=== PATIENT | female | born 1955 | race Caucasian/White ===

== ENCOUNTER 2021-05-16 19:05 | Emergency (ER) | payer BC, SELFPAY ==
[2021-05-16] VITALS (7 sets, daily range): BP systolic 171–199; BP diastolic 77–95; PULSE 87–122; RESP 17–31; TEMP 37.2; O2SAT 96–98; BMI 29.8
--- NOTE | 2021-05-16 19:21 | DI.RAD.S_ITS ---
PROCEDURE: XR CHEST 2V INDICATIONS: SOB TECHNIQUE: 2 views of the chest were acquired. COMPARISON: None. FINDINGS: Surgical changes and devices: None. Lungs and pleura: No consolidation. Prominent pulmonary vasculature markings. No pleural effusions or pneumothorax. Mediastinum: Mediastinal contours are normal. Heart size is within normal limits. Bones and chest wall: No suspicious bony abnormalities. Soft tissues appear unremarkable. IMPRESSION: Prominent pulmonary vasculature markings. This could be due to pulmonary vasculature engorgement. No overt fluid overload/CHF. Dictated by: Francis Guan M.D. on 05/16/2021 at 19:50 Approved by: Francis Guan M.D. on 05/16/2021 at 19:51
[2021-05-16 19:27] LABS: Add Manual Diff / Slide Review NO; Basophils Absolute Auto 0 /uL (0-100); Basophils Percent Auto 0.6 % (0-2); Eosinophils Absolute Auto 300 /uL (0-450); Eosinophils Percent Auto 4.6 % (2-4); Hematocrit 41.5 % (36-46); Hemoglobin 13.9 g/dL (12.0-16.0); Lymphocytes Absolute Auto 1800 /uL (1100-4500); Lymphocytes Percent Auto 27.9 % (25-40); Mean Corpuscular HGB Conc 33.5 % (30-36); Mean Corpuscular Hemoglobin 32.8 PG (26-34); Mean Corpuscular Volume 97.8 fL (80-100); Monocytes Absolute Auto 600 /uL (0-900); Neutrophils Absolute Auto 3600 /uL (1500-7000); Neutrophils Percent Auto 56.9 % (50-75); Platelet Count 215 X10^3/uL (150-400); Red Blood Cell Count 4.24 X10^6/uL (4.0-5.2); Red Cell Distribution Width 13.5 % (11.6-14.8); White Blood Cell Count 6.3 X10^3/uL (4.5-11.0)
[2021-05-16 19:38] LABS: Alanine Aminotransferase 16 IU/L (<35); Albumin 4.4 g/dL (3.5-5.0); Albumin Globulin Ratio 1.3 (1.0-2.8); Alkaline Phosphatase 93 U/L (38-126); Aspartate Aminotransferase 34 IU/L (14-36); BUN Creatinine Ratio 20.4 (6-22); Bilirubin Total 0.4 mg/dL (0.2-1.3); Blood Urea Nitrogen 10 mg/dL (7-17); Calcium 9.6 mg/dL (8.4-10.2); Carbon Dioxide 27 mmol/L (22-32); Chloride 106 mmol/L (98-107); Creatine Kinase 91 U/L (30-135); Estimated Glomerular Filt Rate > 60.0 mL/min (>60); Globulin 3.3 g/dL (1.7-4.1); Glucose 138 mg/dL (80-110); HEMOLYSIS < 15 (0-50); Lipase 135 U/L (23-300); Magnesium 2.1 mg/dL (1.6-2.3); Sodium 138 mmol/L (137-145); Total Protein 7.7 g/dL (6.3-8.2)
[2021-05-16 19:50] LABS: NT-proBNP (BNP-Adult 18+) 36 pg/mL (<125); Troponin I < 0.012 ng/mL (0.01-0.034)
[2021-05-16] MEDS: LIDOCAINE PATCH 1 EACH ADH..PATCH TOP (20:31)
[2021-05-16] MEDS: SODIUM CHLORIDE 0.9% 1,000 ML 125 ML IV (20:31)
[2021-05-16] MEDS: CYCLOBENZAPRINE 10 MG PREPACK 1 BOTTLE MISC (21:25)
--- NOTE | 2021-05-16 21:35 | ED.BACK ---
HPI - Back Pain/Injury General Chief Complaint: Back Pain/Injury Stated Complaint: Right shoulder blade pain x1 day Time Seen by Provider: 05/16/21 19:09 Source: patient History of Present Illness HPI Narrative: 65-year-old female former smoker without significant chronic medical problems presents with her a chief complaint of 2-3 days of worsening right posterior shoulder pain. She denies any obvious injury or overuse. She states that it is worse with change of position and use of her right arm, it seems to be better when she arches back, and particularly when she reaches behind her with her right arm. She denies dizziness, weakness or lightheadedness. She denies any chest pain, shortness of breath or cough. She denies any abdominal pain, nausea or vomiting. She has had no fever or chills. She denies any recent travel, injury or history of blood clots. She denies any neck pain or injury. She denies numbness, tingling or weakness in her extremities Related Data Previous Rx's Medication Instructions Recorded cyclobenzaprine 10 mg tablet 10 mg PO TID PRN #14 tab 05/16/21 Allergies Allergy/AdvReac Type Severity Reaction Status Date / Time NO KNOWN ALLERGIES - NKA Allergy Unknown Uncoded 08/04/17 12:27 Review of Systems Review of Systems Narrative: GENERAL: Denies chills, fatigue, malaise, fever, sweats. HEENT: Denies sinus pain, ear pain, sore throat, difficulty swallowing, dizziness. RESPIRATORY: Denies dyspnea, cough, wheezing, hemoptysis, sputum. CARDIOVASCULAR: Denies chest pain, palpitations, orthopnea, edema, GASTROINTESTINAL: Denies nausea, vomiting, abdominal pain, diarrhea, constipation, melena. : Denies dysuria, frequency, incontinence, hematuria, urinary retention. MUSCULOSKELETAL: See HPI SKIN: Denies rash, skin lesions, or other NEUROLOGIC: Denies weakness, headache, numbness, change in speech, confusion, seizures, incoordination. PSYCHIATRIC: No concerning psychosocial issues. 12 point review of systems is negative except for those stated above Patient History Social History Smoking Status: Former smoker Smoking Status: Former smoker alcohol intake frequency: 3 or more drinks per day Substance Use Type: does not use Exam Narrative Exam Narrative: GENERAL: [65 year old patient appears stated age. Well-developed patient, in mild distress. HEAD: Atraumatic. Normocephalic. EYES: Pupils equal round and reactive. Extraocular motions intact. No scleral icterus. No injection or drainage. ENT: Nose without bleeding, purulent drainage. Throat without erythema, tonsillar hypertrophy or exudate. Airway patent. NECK: Trachea midline. Non tender CARDIOVASCULAR: Regular rate and rhythm without murmurs, gallops, or rubs. RESPIRATORY: Clear to auscultation. Breath sounds equal bilaterally. No wheezes, rales, or rhonchi. GASTROINTESTINAL: Abdomen soft, non-tender, nondistended. EXTREMITIES: No edema or joint tenderness. BACK: Patient is tender to palpation of the paraspinal musculature to the right of her upper thoracic spine and medial of her scapula. This is reproducible and worse with recruitment of the musculature and improves when she pulls her elbow back. There is no erythema, warmth, induration, fluctuance. NEURO: AOx3. SKIN: No rash or erythema of visible areas Initial Vital Signs Initial Vital Signs: Vital Signs Pulse Rate 106 H 05/16/21 19:16 Pulse Oximetry 97 05/16/21 19:16 Course Orders Ordered: ED Orders 05/16/21 19:20 Complete Blood Count AUTO DIFF Stat Comprehensive Metabolic Panel Stat Lipase Stat Magnesium Stat NT-proBNP (BNP-Adult 18+) Stat Troponin & CK Cardiac Panel Stat 05/16/21 19:21 XR chest 2V Stat EKG-12 Lead Stat Sodium Chloride (Normal Saline 0.9%) 1,000 mls @ 125 mls/hr IV CONT ALCIRA Last Admin: 05/16/21 20:31 Dose: 125 mls/hr Documented by: BUBBA Discontinued Medications Cyclobenzaprine HCl (Cyclobenzaprine 10 Mg Prepack) [facility] Stop: 05/16/21 21:05 Last Admin: 05/16/21 21:25 Dose: 1 bottle Documented by: BUBBA Lidocaine (Lidocaine Patch 1 Each Adh..Patch) 1 each TOP NOW ONE Stop: 05/16/21 19:57 Last Admin: 05/16/21 20:31 Dose: 1 each Documented by: BUBBA Reevaluation(s) Reevaluation #1: Patient states she feels a 50% reduction in her pain with the use of lidocaine patch Vital Signs Vital signs: Vital Signs - 8 hr 05/16/21 19:16 05/16/21 19:23 05/16/21 19:30 Temperature 98.9 F Pulse Rate 106 H 122 H 99 H Respiratory Rate 18 22 Blood Pressure 199/93 H Pulse Oximetry 97 96 98 05/16/21 19:42 05/16/21 20:00 05/16/21 20:32 Temperature Pulse Rate 96 H 87 94 H Respiratory Rate 17 20 31 H Blood Pressure 185/80 H 171/77 H Pulse Oximetry 98 97 97 MDM - Back Pain/Injury Lab Data Result diagrams: 05/16/21 19:20 05/16/21 19:20 Labs: Lab Results 05/16/21 05/16/21 Range/Units 19:20 19:20 WBC 6.3 (4.5-11.0) X10^3/uL RBC 4.24 (4.0-5.2) X10^6/uL Hgb 13.9 (12.0-16.0) g/dL Hct 41.5 (36-46) % MCV 97.8 (80-100) fL MCH 32.8 (26-34) PG MCHC 33.5 (30-36) % RDW 13.5 (11.6-14.8) % Plt Count 215 (150-400) X10^3/uL Neut % (Auto) 56.9 (50-75) % Lymph % (Auto) 27.9 (25-40) % [place] % (Auto) 10.0 (3-14) % Eos % (Auto) 4.6 H (2-4) % Baso % (Auto) 0.6 (0-2) % Neut # (Auto) 3600 (1377-4807) /uL Lymph # (Auto) 1800 (1098-7436) /uL [place] # (Auto) 600 (0-900) /uL Eos # (Auto) 300 (0-450) /uL Baso # (Auto) 0 (0-100) /uL Sodium 138 (137-145) mmol/L Potassium 4.0 (3.4-5.1) mmol/L Chloride 106 (98-107) mmol/L Carbon Dioxide 27 (22-32) mmol/L BUN 10 (7-17) mg/dL Creatinine 0.49 L (0.52-1.04) mg/dL Estimated GFR > 60.0 (>60) mL/min BUN/Creatinine Ratio 20.4 (6-22) Glucose 138 H (80-110) mg/dL Calcium 9.6 (8.4-10.2) mg/dL Magnesium 2.1 (1.6-2.3) mg/dL Total Bilirubin 0.4 (0.2-1.3) mg/dL AST 34 (14-36) IU/L ALT 16 (<35) IU/L Alkaline Phosphatase 93 (38-126) U/L Total Creatine Kinase 91 (30-135) U/L CK-MB (CK-2) TNP CK-MB (CK-2) Rel Index TNP Troponin I < 0.012 (0.01-0.034) ng/mL NT-Pro-B Natriuret Pep 36 (<125) pg/mL Total Protein 7.7 (6.3-8.2) g/dL Albumin 4.4 (3.5-5.0) g/dL Globulin 3.3 (1.7-4.1) g/dL Albumin/Globulin Ratio 1.3 (1.0-2.8) Lipase 135 (23-300) U/L Imaging Data Chest x-ray: Radiologist's Impression: Prominent pulmonary vasculature, this could be due to CHF, no overt fluid overload. ECG Data Interpretation: EKG is normal sinus rhythm rate [99 ] and free of any signs of ischemia or ectopy. No ST segmental elevation or depression. No T wave inversions MDM Narrative Medical decision making narrative: Multiple etiologies for patient's symptoms considered including: [Musculoskeletal thought most likely given reproducibility to motion and palpation and improvement with topical medication. Cardiac disease considered but thought less likely given lack of exertional component, no radiation of pain, nausea, vomiting, shortness of breath, as well as normal troponin and nonischemic EKG. Referred pain from abdominal illness considered but thought less likely given reassuring labs and no pain with palpation or eating. Patient's symptoms improved over duration of stay with above-stated therapies. Findings and discharge diagnosis discussed with patient/family followed by verbalization of understanding Return precautions discussed with patient/family whom verbalize understanding. Discharge Plan Departure Patient Disposition: Home Clinical Impression: Acute thoracic myofascial strain Instructions: DI for Muscle Strain Activity Restrictions/Additional Instructions: *You have been diagnosed with [right upper back pain most likely due to muscle spasm and inflammation. Your history, physical exam, labs and EKG are very reassuring and there is no evidence of cardiac disease or other serious cause of your pain *What to do: *Please continue to take your regular medications as directed. [ x] New medication prescriptions sent to your pharmacy: [ [facility] [place]] [ ] New medication written as a paper prescription [ ] No new medications given *Please follow up with your primary care provider in 2-3 days, call for an appointment. Let them know you were seen in the Emergency Department and that we ask that you be seen in follow up. We will electronically transmit a record of today's note if your PCP is in our system *If you do not have a primary care provider please contact the [facility] Resource line at [phone]. They will ask some questions about your medical history and help get you set up with a doctor in the community. *Return to Emergency Department if you should have any new, worsening or concerning symptoms, such as [fever greater than 101 F, shaking chills, worsening pain, persistent vomiting or other bothersome symptoms] Prescriptions: New cyclobenzaprine 10 mg tablet 10 mg PO TID PRN (Reason: muscle spasm) Qty: 14 0RF
== END 2021-05-16 21:35 | disposition home or self-care (01) ==
PROVIDERS: Emergency Provider Emergency Medicine
DX: S29.012A Strain of muscle and tendon of back wall of thorax, initial encounter (principal); Z87.891 Personal history of nicotine dependence; X58.XXXA Exposure to other specified factors, initial encounter
CPT/HCPCS: 36415; 71046; 80053; 82550; 83690; 83735; 83880; 84484; 85025; 93005; 93010; 99284

== ENCOUNTER → 2021-12-11 13:23 | Outpatient (CLI) | payer MEDICARE, OTHER, SELFPAY ==
--- NOTE | 2021-12-11 | DI.RAD.S_ITS ---
PROCEDURE: XR CERVICAL SPINE 2V OR 3V INDICATIONS: Other chronic pain TECHNIQUE: 3 view(s) of the cervical spine were acquired. COMPARISON: None. FINDINGS: Bones: No fractures or dislocations to the T1 level. The lateral masses of C1 appear intact on the odontoid view. No suspicious bony lesions. Loss of lordosis which could be related to muscle spasm, rigidity or simply positional. Multilevel disc height loss with endplate sclerosis and spurring, moderate at the C4-C5, C5-C6 and C6-C7 levels. Moderate multilevel mid and lower cervical spine facet joint arthropathy. Mild multilevel uncovertebral hypertrophy. Soft tissues: No prevertebral soft tissue swelling. IMPRESSION: Loss of lordosis and multilevel spondylosis. Dictated by: Ricardo Cadrenas Sofi Interpreted: Ghazala Abel MD on 12/11/2021 at 15:34 Transcribed by: ZIGGY on 12/11/2021 at 15:35 Approved by: Ghazala Abel M.D. on 12/11/2021 at 17:40
--- NOTE | 2021-12-11 | DI.RAD.S_ITS ---
PROCEDURE: XR SHOULDER LT MIN 2V INDICATIONS: Other chronic pain TECHNIQUE: 3 views of the shoulder were acquired. COMPARISON: None. FINDINGS: Bones: No fractures or dislocations. No suspicious bony lesions. Visualized ribs appear intact. Glenohumeral joint degenerative arthritis with large humeral osteophyte. Soft tissues: No suspicious soft tissue calcifications. IMPRESSION: Glenohumeral joint degenerative arthritis. Dictated by: Pa Cornelius M.D. on 12/11/2021 at 16:19 Approved by: Pa Cornelius M.D. on 12/11/2021 at 16:19
--- NOTE | 2021-12-11 | DI.RAD.S_ITS ---
PROCEDURE: XR SHOULDER RT MIN 2V INDICATIONS: Other chronic pain TECHNIQUE: 3 views of the shoulder were acquired. COMPARISON: None. FINDINGS: Bones: No fractures or dislocations. No suspicious bony lesions. Visualized ribs appear intact. Glenohumeral degenerative arthritis. Subacromial spur. Soft tissues: No suspicious soft tissue calcifications. IMPRESSION: Subacromial spur. Glenohumeral joint degenerative arthritis. Dictated by: Pa Cornelius M.D. on 12/11/2021 at 16:18 Approved by: Pa Cornelius M.D. on 12/11/2021 at 16:19
== END ==
PROVIDERS: PCP Internal Medicine; Referring Provider Internal Medicine; Visit Provider Internal Medicine
DX: M19.011 Primary osteoarthritis, right shoulder (principal); M19.012 Primary osteoarthritis, left shoulder; M54.2 Cervicalgia; M47.812 Spondylosis without myelopathy or radiculopathy, cervical region; M25.512 Pain in left shoulder; M25.511 Pain in right shoulder; G89.29 Other chronic pain
CPT/HCPCS: 72040; 73030